=== PATIENT | male | born 1995 | race Two or more races ===

== ENCOUNTER 2024-01-15 12:59 | Emergency (ER) | payer OTHER ==
[~2024-01-15] VITALS: Ht 185.4 cm; Wt 97.0 kg
[2024-01-15 13:04] VITALS: O2SAT 99
[2024-01-15] MEDS ORDERED: TETANUS, DIPHTHERIA, PERTUSSIS VAC/PF 0.5ML (>10YR OLD) IM ONE (13:30)
[2024-01-15] MEDS: TETANUS, DIPHTHERIA, PERTUSSIS VAC/PF 0.5ML (>10YR OLD) IM ONE (14:34)
[2024-01-15 14:49] VITALS: BP 126/74; PULSE 61; RESP 20; TEMP 36.16956; O2SAT 99
== END 2024-01-15 14:52 | disposition home or self-care (01) ==
LOC: ER 12:59
DX: S40.811A Abrasion of right upper arm, initial encounter (principal); V26.49XA Other motorcycle driver injured in collision with other nonmotor vehicle in traffic accident, initial encounter; Y93.89 Activity, other specified; Y92.89 Other specified places as the place of occurrence of the external cause; Y99.8 Other external cause status
CPT/HCPCS: 90471; 90715; 99283